=== PATIENT | female | born 1975 | race Two or more races ===

== ENCOUNTER 2021-03-06 18:20 | Emergency (ER) | payer OTHER ==
[~2021-03-06] VITALS: Ht 160 cm; Wt 74.8 kg
== END 2021-03-06 23:34 | disposition home or self-care (01) ==
LOC: ER 18:20
DX: R10.2 Pelvic and perineal pain (principal); R10.9 Unspecified abdominal pain

== ENCOUNTER 2021-04-30 08:07 | Emergency (ER) | payer OTHER ==
[~2021-04-30] VITALS: Ht 162.6 cm; Wt 65.8 kg
== END 2021-04-30 13:25 | disposition home or self-care (01) ==
LOC: ER 08:07
DX: K42.9 Umbilical hernia without obstruction or gangrene (principal)